=== PATIENT | female | born 1970 | race Caucasian/White ===

== ENCOUNTER 2020-03-13 11:26 | Emergency (ER) | payer MEDICARE ==
[~2020-03-13] VITALS: Ht 165.1 cm; Wt 77.8 kg
--- NOTE | 2020-03-13 11:48 | NUR ---
c/o rt knee pain. Yesterday, was walking dog, stepped off sidewalk, stepped back up, fell and landed on knee. Pain worsening today. Able to bear weight. Pain w/ straightening and flexing 90 degree angle. Slight swelling noted, scabbed abrasions noted. Denies numbness/tingling distal to knee. + ROM ankle. Pedal pulses strong & reg bilat. No pain med taken
[2020-03-13] MEDS ORDERED: MELOXICAM (11:54)
[2020-03-13] MEDS ORDERED: GABA300C PO (11:54)
[2020-03-13] MEDS ORDERED: DIPH1TAB PO (11:54)
[2020-03-13] MEDS ORDERED: [UNRECOGNIZED DRUG - OTHER] (11:54)
--- NOTE | 2020-03-13 11:57 | NUR ---
TO XR PER AMY
[2020-03-13] MEDS ORDERED: DIPH,PERTUSS(ACELL),TET VAC/PF 0.5 ML IM-VACC ONE ×2 (12:00→13:42)
[2020-03-13 12:48] VITALS: BP 113/87
[2020-03-13] MEDS ORDERED: IBUPROFEN 200 MG TABLET ONE (13:12)
[2020-03-13] MEDS ORDERED: IBUPROFEN 200 MG TABLET PO ONE (13:30)
== END 2020-03-13 13:55 | disposition home or self-care (01) ==
LOC: ED 12:10
DX: L03.115 Cellulitis of right lower limb (principal); M79.89 Other specified soft tissue disorders; M19.90 Unspecified osteoarthritis, unspecified site; M25.561 Pain in right knee; Z88.9 Allergy status to unspecified drugs, medicaments and biological substances; Z85.038 Personal history of other malignant neoplasm of large intestine; Z79.899 Other long term (current) drug therapy
CPT/HCPCS: 90471; 90715; 99283

== ENCOUNTER 2020-05-03 06:01 | Day surgery (SDC) | payer MEDICARE ==
[~2020-05-03] VITALS: Ht 165.1 cm; Wt 76.8 kg
[~2020-05-03 06:01] MED LIST: DIPH1TAB PO; GABA300C PO; LOPE-114 PO; MELO7.5T31 PO; MELOXICAM; ONDA8TAB9 PO; [UNRECOGNIZED DRUG - OTHER]
[2020-05-03] MEDS ORDERED: BUPIVACAINE/PF-EPI 0.5% 1:200K ONE (06:02)
[2020-05-03 06:19] VITALS: BP 109/82
[2020-05-03] MEDS ORDERED: CHLORHEXIDINE 15 ML UDC MM STA (06:19)
[2020-05-03] MEDS ORDERED: LACTATED RINGERS 1,000 ML IV SCH (06:19)
[2020-05-03] MEDS ORDERED: INDOCYANINE GREEN 25 MG VIAL ONE (06:47)
[2020-05-03] MEDS ORDERED: SUFentanil 50 MCG/ML, 5ML ONE (06:54)
[2020-05-03] MEDS ORDERED: MIDAZOLAM 1 MG/ML, 2ML ONE (06:56)
[2020-05-03] MEDS ORDERED: INDOCYANINE GREEN 25 MG VIAL IV ONE (07:00)
[2020-05-03] MEDS ORDERED: CEFOTETAN PMX ONE (07:14)
[2020-05-03] MEDS ORDERED: EPHEDRINE 50 MG/ML, 1ML ONE (07:14)
[2020-05-03] MEDS ORDERED: ROCURONIUM 10MG/ML,5ML ONE (07:14)
[2020-05-03] MEDS ORDERED: LIDOCAINE-MPF 1%, 5ML ONE (07:14)
[2020-05-03] MEDS ORDERED: FENTANYL PF 100 MCG/2ML IV PRN (08:00)
[2020-05-03] MEDS ORDERED: hydrALAzine 20 MG/ML, 1ML IV PRN (08:00)
[2020-05-03] MEDS ORDERED: ACETAMINOPHEN 325 MG TABLET PO PRN (08:00)
[2020-05-03] MEDS ORDERED: ALBUTEROL SULFATE 2.5 MG/3 ML NPPB PRN (08:00)
[2020-05-03] MEDS ORDERED: HYDROmorphone 1 MG/ML, 1ML INJ IVPush PRN (08:00)
[2020-05-03] MEDS ORDERED: LABETALOL 5MG/ML, 20ML IV PRN (08:00)
[2020-05-03] MEDS ORDERED: PROMETHAZINE 25 MG/ML, 1ML IVPush PRN (08:00)
[2020-05-03] MEDS ORDERED: MEPERIDINE/PF 25MG/0.5ML IVPush PRN (08:00)
[2020-05-03] MEDS ORDERED: METHOCARBAMOL 1,000 MG in DEXTROSE 5% 100 ML IV ONE (08:00)
[2020-05-03] MEDS ORDERED: LORazepam 2 MG/ML, 1ML IVPush PRN (08:00)
[2020-05-03] MEDS ORDERED: OXYcodone 5 MG/5 ML ORAL.SOL UDC PO PRN (08:00)
[2020-05-03] MEDS ORDERED: DEXAMETHASONE 4 MG/ML, 1ML ONE (08:18)
[2020-05-03] MEDS ORDERED: ONDANSETRON 2MG/ML, 2ML ONE (08:18)
[2020-05-03] MEDS ORDERED: NEOSTIGMINE 1 MG/ML, 10ML ONE (08:18)
[2020-05-03] MEDS ORDERED: GLYCOPYRROLATE 0.2MG/1ML, 5ML ONE (08:18)
[2020-05-03] MEDS ORDERED: CEFAZOLIN 1,000 MG ONE (08:18)
[2020-05-03] MEDS ORDERED: PROPOFOL 10 MG/ML, 20ML ONE (08:18)
[2020-05-03] MEDS ORDERED: ACETAMINOPHEN 650 MG/20.3 ML UDC ONE (08:48)
[2020-05-03] MEDS ORDERED: OXYcodone 5 MG/5 ML ORAL.SOL UDC ONE (08:48)
[2020-05-03] MEDS ORDERED: MEPERIDINE/PF 25MG/ML,1ML ONE (08:48)
[2020-05-03] MEDS ORDERED: PROMETHAZINE 25 MG/ML, 1ML ONE (09:07)
[2020-05-03] MEDS ORDERED: KETOROLAC 30 MG/1 ML ONE (09:25)
[2020-05-03] MEDS ORDERED: KETOROLAC 30 MG/1 ML IVPush PRN (09:30)
== END 2020-05-03 11:05 | disposition home or self-care (01) ==
LOC: OUT 06:01
PROVIDERS: ATTEND Colon & Rectal Surgery
DX: K80.20 Calculus of gallbladder without cholecystitis without obstruction (principal); Z20.828 Contact with and (suspected) exposure to other viral communicable diseases; K82.8 Other specified diseases of gallbladder; Z79.1 Long term (current) use of non-steroidal anti-inflammatories (NSAID); Z79.899 Other long term (current) drug therapy; Z85.038 Personal history of other malignant neoplasm of large intestine; Z88.8 Allergy status to other drugs, medicaments and biological substances; Z90.49 Acquired absence of other specified parts of digestive tract; Z90.710 Acquired absence of both cervix and uterus; Z98.890 Other specified postprocedural states; Z80.0 Family history of malignant neoplasm of digestive organs; Z80.1 Family history of malignant neoplasm of trachea, bronchus and lung
CPT/HCPCS: 36415; 47562; 87635; 88304; C1729; J0690; J1100; J1885; J2175; J2250; J2405; J2550; J2704; J2710; J3490; J7120

== ENCOUNTER → 2020-05-22 | Outpatient (CLI) | payer MEDICARE ==
[~2020-05-22] MED LIST changes: +OMNIPAQUE 350 MG/ML, 100ML BOTTLE ONE
== END | disposition home or self-care (01) ==
LOC: CFH 13:20
PROVIDERS: ATTEND Internal Medicine Gastroenterology
DX: K52.9 Noninfective gastroenteritis and colitis, unspecified (principal); R10.30 Lower abdominal pain, unspecified; Z15.09 Genetic susceptibility to other malignant neoplasm; Z90.49 Acquired absence of other specified parts of digestive tract; Z85.038 Personal history of other malignant neoplasm of large intestine
CPT/HCPCS: 74177; Q9967

== ENCOUNTER → 2021-04-16 | Outpatient (CLI) | payer MEDICARE ==
[~2021-04-16] MED LIST changes: -OMNIPAQUE 350 MG/ML, 100ML BOTTLE ONE
== END | disposition home or self-care (01) ==
LOC: CFH 08:34
PROVIDERS: ATTEND Internal Medicine
DX: R59.1 Generalized enlarged lymph nodes (principal)
CPT/HCPCS: 76642; 77062; 77066; G0279